=== PATIENT | female | born 1960 | race African-American/Black ===

== ENCOUNTER 2022-09-12 20:15 | Emergency (ER) | payer OTHER ==
[~2022-09-12] VITALS: Ht 160 cm; Wt 73.5 kg
[~2022-09-12 20:15] MED LIST: ENALAPRIL MALEAT5 MG PO
[2022-09-12] MEDS ORDERED: ZESTRIL10 M1 (20:58)
[2022-09-12] MEDS ORDERED: HYDROCHLOROTHIA25 MG (20:58)
[2022-09-12] MEDS ORDERED: NORFLEX100MG PO (23:06)
[2022-09-12] MEDS ORDERED: KETO10TA2 PO (23:06)
== END 2022-09-12 23:28 | disposition home or self-care (01) ==
LOC: ER 20:15
DX: S40.011A Contusion of right shoulder, initial encounter (principal); S10.93XA Contusion of unspecified part of neck, initial encounter; S30.0XXA Contusion of lower back and pelvis, initial encounter; S90.31XA Contusion of right foot, initial encounter; W18.39XA Other fall on same level, initial encounter; Y93.89 Activity, other specified; Y92.413 State road as the place of occurrence of the external cause; Y99.8 Other external cause status; I10 Essential (primary) hypertension

== ENCOUNTER 2022-11-09 09:07 | Emergency (ER) | payer OTHER ==
[~2022-11-09] VITALS: Ht 160 cm; Wt 73.5 kg
[~2022-11-09 09:07] MED LIST changes: +HYDROCHLOROTHIA25 MG; +KETO10TA2 PO; +NORFLEX100MG PO; +ZESTRIL10 M1
[2022-11-09] MEDS ORDERED: MUCINEX600 MG (09:32)
== END 2022-11-09 10:38 | disposition home or self-care (01) ==
LOC: ER 09:07
DX: J06.9 Acute upper respiratory infection, unspecified (principal); R05.9 Cough, unspecified; R53.81 Other malaise; I10 Essential (primary) hypertension